=== PATIENT | male | born 1970 | race Caucasian/White ===

== ENCOUNTER 2019-09-27 14:41 | Emergency (ER) | payer BC, SELFPAY ==
[2019-09-27] MEDS ORDERED: Bacitracin 1 PK ONE (15:41)
== END 2019-09-27 15:58 | disposition home or self-care (01) ==
LOC: NAV ERS 14:41
DX: S60.351A Superficial foreign body of right thumb, initial encounter (principal); I10 Essential (primary) hypertension; F32.9 Major depressive disorder, single episode, unspecified; Z79.899 Other long term (current) drug therapy; W26.9XXA Contact with unspecified sharp object(s), initial encounter
CPT/HCPCS: 99283